=== PATIENT | female | born 1980 | race Caucasian/White ===

== ENCOUNTER 2020-01-27 22:53 | Inpatient (IN) | payer OTHER ==
[2020-01-27] MEDS ORDERED: RINGERS SOLUTION,LACTATED 1,000 ML IV PRN (23:27)
[2020-01-27] MEDS ORDERED: RINGERS SOLUTION,LACTATED 1,000 ML IV ONE (23:27)
--- NOTE | 2020-01-27 23:32 | Admission Physical ---
Datetime Report Generated by CPN: 01/27/2020 23:32 CURRENT ADMISSION Hx Assessment: The History has been Reviewed and is Current Chief Complaint: Uterine Contractions; Suspected Ruptured Membranes Chief Complaint Other: Labor Admit Impression : Term, Intrauterine ; Active Labor Admit Plan: Admit to Unit; Initiate Labor Protocol ALLERGIES Medication Allergies: Yes Medication Allergies: Sulfa (Sulfonamide Antibiotics) (01/27/2020) OBSTETRICAL HISTORY EDC: 02/03/2020 00:00 : 3 Para: 1 Term: 1 : 0 SAB: 0 IAB: 1 Ectopic: 0 Livin Cesareans: 0 VBACs: 0 Multiple Births: 0 Gestational Diabetes: Yes Obstetrical History Comments: G1-2006 4 week MAB 37 weeks 2019 Current; Polyhydramnios, GDM; large uterine fibroids MEDICAL HISTORY Diabetes: Yes Diabetes Type: Gestational Diabetes PHYSICAL EXAM General: Normal HEENT: Normal Neurologic: Normal Thyroid: Normal Heart: Normal Lungs: Normal Breast: Normal Back: Normal Abdomen: Normal Genitourinary Exam: Normal Extremities: Normal DTRs: Normal Pelvic Type: Adequate Vital Signs: Reviewed; Within Normal Limits VAGINAL EXAM Dilatation: 10 Effacement: 100 Station: 2 Contraction Comments: regular contracions FETUS A EGA: 39.0 Monitoring: External US FHR- Baseline: 145 Variability: Moderate 6-25bpm Accelerations: 15X15 Decelerations: None FHR Category: Category I Presentation: Vertex Admit Comment: at 39.0 wks EGA in active labor -Admit to LDR -NPO and IVFs. LR at 125 cc/hr after a 1 liter bolus -CEFM and toco -GBS negative -Hx of one prior -Anticipate INFORMED CONSENT Informed Consent Obtained: Vaginal Delivery; Section Delivery; Vacuum/Forceps Assist; Risks, Benefits and Alternatives Discussed Signature: with User ID: [email or web address] : with User ID: [email or web address]
[2020-01-27] MEDS ORDERED: MISOPROSTOL 0.2 MG TABLET ONE (23:33)
[2020-01-27] MEDS ORDERED: LIDOCAINE 1% INJ-PF (10 MG/ML) 30 ML SDV ONE (23:33)
[2020-01-27] MEDS ORDERED: OXYTOCIN 10 UNIT/ML VIAL ONE (23:33)
[2020-01-27] MEDS ORDERED: OXYTOCIN/0.9 % SODIUM CHLORIDE 30 UNIT/500 ML RTUINJ ONE (23:33)
[2020-01-28] MEDS ORDERED: ACETAMINOPHEN 650 MG SUPP.RECT PR PRN
[2020-01-28] MEDS ORDERED: PSEUDOEPHEDRINE HCL 30 MG TABLET PO PRN
[2020-01-28] MEDS ORDERED: BENZOCAINE/MENTHOL AEROSOL SPRAY 56 ML TOP PRN
[2020-01-28] MEDS ORDERED: DIPH/PERTUSS(ACELL)/TETANUS VAC/PF 0.5 ML SYR (>=10YO) IM PRN
[2020-01-28] MEDS ORDERED: NA PHOS,M-B/NA PHOS,DI-BA (ADULT) 133 ML ENEMA PR PRN
[2020-01-28] MEDS ORDERED: ZOLPIDEM TARTRATE 5 MG TABLET PO PRN
[2020-01-28] MEDS ORDERED: OXYTOCIN/0.9 % SODIUM CHLORIDE 30 UNIT/500 ML RTUINJ IV PRN
[2020-01-28] MEDS ORDERED: PROMETHAZINE HCL INJ 25 MG/1 ML VIAL IV PRN
[2020-01-28] MEDS ORDERED: MAGNESIUM HYDROXIDE SUSP 30 ML UDCUP PO PRN
[2020-01-28] MEDS ORDERED: DIBUCAINE 1% OINTMENT 28 GM TP PRN
[2020-01-28] MEDS ORDERED: MEASLES,MUMPS&RUBELLA VACC/PF 0.5 ML VIAL SUBCUT PRN
[2020-01-28] MEDS ORDERED: PROMETHAZINE HCL 25 MG TABLET PO PRN
[2020-01-28] MEDS ORDERED: DIPHENHYDRAMINE HCL 25 MG CAPSULE PO PRN
[2020-01-28] MEDS ORDERED: MISOPROSTOL 0.2 MG TABLET PO SCH
[2020-01-28] MEDS ORDERED: PROMETHAZINE HCL 25 MG SUPP.RECT PR PRN
[2020-01-28] MEDS ORDERED: GLYCERIN/WITCH HAZEL LEAF 1 EACH MED..WIPE TP PRN
[2020-01-28] MEDS ORDERED: ACETAMINOPHEN WITH CODEINE #3 TABLET PO PRN ×2
[2020-01-28 00:19] LABS: APPEARANCE,URINE CLEAR; BILIRUBIN,URINE NEGATIVE (NEGATIVE); COLOR,URINE YELLOW; GLUCOSE, URINE 50 mg/dL (NEGATIVE); KETONES,URINE NEGATIVE (NEGATIVE); LEUKOCYTE ESTERASE,URINE TRACE (NEGATIVE); NITRITE,URINE NEGATIVE (NEGATIVE); PROTEIN,URINE NEGATIVE (NEGATIVE); UROBILINOGEN,URINE NEGATIVE mg/dL (<2.0)
[2020-01-28] MEDS ORDERED: BENZOCAINE/MENTHOL AEROSOL SPRAY 56 ML ONE (00:25)
[2020-01-28] MEDS ORDERED: IBUPROFEN 800 MG TABLET PO ONE (00:30)
[2020-01-28] MEDS ORDERED: FAMOTIDINE 20 MG TABLET PO ONE (00:30)
[2020-01-28] MEDS: ACETAMINOPHEN 325 MG TABLET PO PRN ×2 (00:30→09:34)
[2020-01-28] MEDS ORDERED: ACETAMINOPHEN 325 MG TABLET ONE (00:33)
[2020-01-28 01:00] LABS: ABSOLUTE LYMPHOCYTES (AUTO) 0.9 10^3/uL (0.5-4.7); ABSOLUTE MONOCYTES (AUTO) 0.6 10^3/uL (0.1-1.4); ABSOLUTE NEUT (AUTO) 13.9 10^3/uL (1.7-8.2); BASOPHILS % (AUTO) 0.1 % (0-2); HEMATOCRIT 33.1 % (36.0-47.0); HEMOGLOBIN 11.5 g/dL (12.0-15.5); LYMPHOCYTES % (AUTO) 5.7 % (13-45); MEAN CORPUSCULAR HEMOGLOBIN 30.1 pg (27.0-33.4); MEAN CORPUSCULAR HGB CONC 34.7 g/dL (32.0-36.0); MEAN CORPUSCULAR VOLUME 87 fl (80-97); MONOCYTES % (AUTO) 4.1 % (3-13); PLATELET COUNT 169 10^3/uL (150-450); RED BLOOD COUNT 3.81 10^6/uL (3.72-5.28); RED CELL DISTRIBUTION WIDTH 13.8 % (11.5-14.0); SEGMENTED NEUTROPHILS % (AUTO) 90.1 % (42-78); TOTAL CELLS COUNTED % (AUTO) 100 %; WHITE BLOOD COUNT 15.5 10^3/uL (4.0-10.5)
[2020-01-28 01:00] LABS: URINE AMPHETAMINES SCREEN NEGATIVE; URINE BARBITURATES SCREEN NEGATIVE; URINE BENZODIAZEPINES SCREEN NEGATIVE; URINE COCAINE SCREEN NEGATIVE; URINE MARIJUANA (THC) SCREEN NEGATIVE; URINE METHADONE SCREEN NEGATIVE; URINE PHENCYCLIDINE SCREEN NEGATIVE
--- NOTE | 2020-01-28 02:43 | Birth Certificate Data ---
Cert Data Datetime Report Generated by CPNorma: 01/28/2020 02:42 CERTIFICATE DATA 47a. Care: Yes (01/27/2020 23:03:Gabrielle Malik RN) 47b. Date of First Visit: 07/10/2019 00:00 (01/27/2020 23:03:Gabrielle Malik RN) 47c. Date of Last Visit: 01/23/2020 00:00 (01/27/2020 23:03:Gabrielle Malik RN) 47d. Number of Visits: 13 (01/27/2020 23:03:Gabrielle Malik RN) 48a. Number of Prev Live Births: 1 (01/27/2020 23:03:Gabrielle Malik RN) 48b. Now Livin (01/27/2020 23:03:Gabrielle Malik RN) 48c. Live Births Now : 0 (01/27/2020 23:03:QS system process) 48d. Date of Last Live : 05/02/2017 00:00 (01/27/2020 23:03:Gabrielle Malik RN) 48e. Losses: 1 (01/27/2020 23:03:Gabrielle Malik RN) 48f. Date of Last Preg Loss: 04/11/2006 00:00 (01/27/2020 23:03:Gabrielle Malik RN) RISK FACTORS IN THIS 49a. Diabetes: Yes (01/27/2020 23:03:Gabrielle Malik RN) Type of Diabetes: Gestational Diabetes (01/27/2020 23:03:Gabrielle Malik RN) 49b. Hypertension: No (01/27/2020 23:03:Gabrielle Malik RN) 49c. Previous Births: 0 (01/27/2020 23:03:Gabrielle Malik RN) 49d. Stillborns: No (01/27/2020 23:03:Gabrielle Malik RN) 49d. IUGR: No (01/27/2020 23:03:Gabrielle Malik RN) 49e. Infertility Treatment: No (01/27/2020 23:03:Gabrielle Malik RN) 49f. Previous Cesareans: 0 (01/27/2020 23:03:Gabrielle Malik RN) Mother's Height 50b. Height Inches: 64 (01/27/2020 23:07:QS system process) Mother's Weight 51a. Pre- Weight (lbs): 145 (01/27/2020 23:03:Gabrielle Malik RN) 51b. Weight at Delivery (lbs): 169 (01/27/2020 23:07:QS system process) 52. Dt Last Normal Menses Began: 04/29/2019 00:00 (01/27/2020 23:03:Gabrielle Malik RN) Infections Present/Treated 53a. Gonorrhea: No (01/27/2020 23:03:Gabrielle Malik RN) Results this Hospital Visit : Negative (01/27/2020 23:03:Gabrielle Malik RN) 53b. Syphilis: No (01/27/2020 23:03:Gabrielle Malik RN) 53c. Chlamydia: No (01/27/2020 23:03:Gabrielle Malik RN) Results this Hospital Visit: Negative (01/27/2020 23:03:Gabrielle Malik RN) 53d. Hepatitis B: No (01/27/2020 23:03:Gabrielle Malik RN) Results this Hospital Visit: Negative (01/27/2020 23:03:Gabrielle Malik RN) 53h. Mother Tested for HBsAG: Yes (01/27/2020 23:03:Gabrielle Malik RN) 53i. Date Tested: 07/10/2019 00:00 (01/27/2020 23:03:Gabrielle Malik RN) 53j. Test Result: Negative (01/27/2020 23:03:Gabrielle Malik RN) Obstetric Procedures 54a, b, c. Obstetric Procedures: Ultrasound (01/27/2020 23:03:Gabrielle Malik RN) Cigarette Smoking Cigarette Smoking: Never Smoker. [id number] (01/27/2020 23:03:Gabrielle Malik RN) Onset of Labor 56a. PROM >12 Hrs: 1.37 (01/27/2020 23:03:QS system process) 56b. Precipitous Labor <3 Hrs: 4 (01/27/2020 23:03:QS system process) 56c. Prolonged Labor > 20 Hrs: 4 (01/27/2020 23:03:QS system process) 57a. Induction of Labor: N/A (01/27/2020 23:03:ZAHIDA Patel) 57c. Non-Vertex Presentation A: Vertex (01/27/2020 23:03:ZAHIDA Patel) 57d. Steroids - Lung Mat: None (01/27/2020 23:03:ZAHIDA Patel) 57d. Steroids - Lung Mat: Not Applicable (01/27/2020 23:03:ZAHIDA Patel) 57f. Mat [place] or Temp >100.4: 98.4 (01/27/2020 23:03:Gabrielle Malik RN) 57g. Moderate/Heavy Meconium: Clear (01/27/2020 23:03:ZAHIDA Patel) 57h. Intolerance of Labor: N/A (01/27/2020 23:03:ZAHIDA Patel) : N/A (01/27/2020 23:03:Gabrielle Malik RN) 57i. Epidural/Spinal Anesthesia: None (01/27/2020 23:03:ZAHIDA Patel) Method of Delivery 58a. Forceps - Unsuccessful A: N/A (01/27/2020 23:03:ZAHIDA Patel) 58b. Vacuum - Unsuccessful A: N/A (01/27/2020 23:03:ZAHIDA Patel) 58c. Presentation at 58c. Presentation at - A : Vertex (01/27/2020 23:03:ZAHIDA Patel) 58c. Presentation at - A : N/A (01/27/2020 23:03:Pallavi Bellavance, RNC) 58c. Presentation at - A : Cephalic (01/27/2020 23:03:Pallavi Bellavance, RNC) Final Route and Method of Del 58d. Baby A Route/Delivery: Vaginal (01/27/2020 23:39:Gabrielle Malik RN) 58e. Trial of Labor Attempted: No (01/27/2020 23:03:Pallavi Bellavance, RNC) 58e. Trial of Labor Attempted A: N/A (01/27/2020 23:03:Pallavi Bellavance, RNC) 58e. Trial of Labor Attempted B: N/A (01/27/2020 23:03:Pallavi Bellavance, RNC) Maternal Morbidity 59b. 3rd or 4th Degree Lacs: Perineal (01/27/2020 23:03:Estephania Dumont, MD) Birthweight Baby A: 3438 (01/27/2020 23:03:Gabrielle Malik ) 60a. Pounds : 7 (01/27/2020 23:03:QS system process) 60b. Ounces: 9 (01/27/2020 23:03:QS system process) 61. GA at Delivery Baby A: 39.0 (01/27/2020 23:03:[facility]) : Full Term- 39- 40.6 Weeks (01/27/2020 23:03:QS system process) 62a. 5 Minute Baby A: 9 (01/27/2020 23:03:QS system process)
--- NOTE | 2020-01-28 02:43 | Delivery Summary ---
Del Sum A-C Datetime Report Generated by CPN: 01/28/2020 02:42 DELIVERY PERSONNEL DELIVERY PERSONNEL: [id number] Delivery Doctor:: Estephania Dumont MD Labor and Delivery Nurse:: Gabrielle Malik RN Labor and Delivery Nurse:: Pallavi Jaimes RNC Nursery Nurse:: Lori Hernandez RN Head Of Music/BULKER: Lindsey Green, ST MATERNAL INFORMATION Delivery Anesthesia: None Medications After Delivery: Pitocin 30 Units in 500ml NS/D5W Delivery QBL: 200 Maternal Complications: None Provider Comments: Called to patients room as she was complete and +3. Pateint had desire to push Pushed through two contractions and delivered viable male . After the head delivered, a nuchal cord x2 noted and reduced. SHoulders and rest of the body delivered easily. Cord clamping delayed for 30 seconds as was vigorous. placed chest to chest with Mother after cord doubly clamped and cut. Both stable. Fundus firm LABOR SUMMARY EDC: 02/03/2020 00:00 No. Babies in Womb: 1 Attempted: No Labor Anesthesia: None LABOR INFORMATION Reason for Induction: Not Applicable Onset of Labor: 01/27/2020 19:00 Complete Dilatation: 01/27/2020 23:24 Oxytocin: N/A Group B Beta Strep: negative Antibiotics # of Doses: 0 Name of Antibiotic Given: n/a Steroids Given: None Reason Steroids Not Administered: Not Applicable MEMBRANES Membranes Rupture Method: Spontaneous Rupture of Membranes: 01/27/2020 22:17 Length of Rupture (hr): 1.37 Amniotic Fluid Color: Clear Amniotic Fluid Amount: Small Amniotic Fluid Odor: None STAGES OF LABOR Stage 1 hr: 4 Stage 1 min: 24 Stage 2 hr: 0 Stage 2 min: 15 Stage 3 hr: 0 Stage 3 min: 5 Total Time in Labor hr: 4 Total Time in Labor min: 44 VAGINAL DELIVERY Episiotomy: None Laceration #1: Perineal Laceration Extension #1: Second Degree Laceration Repair: Yes Laceration Repair Note: Repaired with 2-0 chromic in a layered closure Sponge Count Correct: Yes Sharps Count Correct: Yes CSECTION DELIVERY Primary Indication: N/A Secondary Indication: N/A CSection Urgency: N/A CSection Incidence: N/A Labor: N/A Elective: N/A CSection Incision: N/A BABY A INFORMATION Delivery Date/Time: 01/27/2020 23:39 Method of Delivery: Vaginal Nurse Controlled Delivery: No Born in Route : No : N/A Forceps: N/A Vacuum Extraction: N/A Shoulder Dystocia : No PRESENTATION/POSITION BABY A Presentation: Cephalic Cephalic Presentation: Vertex Vertex Position: Left Occipital Anterior Breech Presentation: N/A PLACENTA INFORMATION BABY A Placenta Delivery Time : 01/27/2020 23:44 Placenta Method of Delivery: Spontaneous Placenta Status: Delivered SCORES BABY A Heart Rate 1 min: >100 bpm Resp Effort 1 min: Good Cry Reflex Irritability 1 min: Cough or Sneeze or Pulls Away Muscle Tone 1 min: Some Flexion of Extremities Color 1 min: Blue/Pale Resuscitation Effort 1 min: Tactile Stimulation SCORE 1 MIN: 7 Heart Rate 5 min: >100 bpm Resp Effort 5 min: Good Cry Reflex Irritability 5 min: Cough or Sneeze or Pulls Away Muscle Tone 5 min: Active Motion Color 5 min: Body Earling, Extremities Blue Resuscitation Effort 5 min: Tactile Stimulation SCORE 5 MIN: 9 INFORMATION BABY A Gestational Age at Delivery: 39.0 Gestational Status: Full Term- 39- 40.6 Weeks Outcome : Liveborn Condition : Stable Infant Sex: Male IDENTIFICATION BABY A Verification Date/Time: 01/27/2020 23:46 ID Band Number: [id number] Mother's Name Verified: Yes RN Verifying : C. Gentilin, RN K. Mario, RN WEIGHT/LENGTH BABY A Birthweight (gm): 3438 Weight (lb): 7 Infant Weight (oz): 9 Length (in): 19.50 Length (cm): 49.53 CORD INFORMATION BABY A No. Cord Vessels: 3 Nuchal Cord : Around Neck x2, Loose Cord Blood Taken: Yes-For Eval (Mom's Blood Type - or O+) Suction: Mouth ASSESSMENT BABY A Infant Complications: None Physical Findings at Delivery: Other Physical Findings- Other: see nursery nurse assessment Respirations: Appears Normal Skin to Skin: Yes Skin to Skin Time (min): 60 Landing Worker/ALS Called : No Infant Care By: Oj Hernandez RN Transferred To: Remains with Mother BABY B INFORMATION : N/A SIGNATURES Signature: with User ID: [email or web address] : with User ID: Dede
[2020-01-28] MEDS ORDERED: IBUPROFEN 800 MG TABLET ONE (04:53)
[2020-01-28] MEDS: IBUPROFEN 800 MG TABLET PO SCH ×3 (05:00→22:36)
[2020-01-28] MEDS: DOCUSATE SODIUM 100 MG CAPSULE PO SCH ×2 (09:34→17:16)
[2020-01-28] MEDS: PRENATAL VITAMIN W DHA CAPSULE PO SCH (09:34)
[2020-01-28] MEDS: FERROUS SULFATE 325 MG TABLET PO SCH ×2 (09:35→21:35)
[2020-01-28] MEDS: SENNOSIDES/DOCUSATE 8.6-50 MG 1 EACH TABLET PO SCH (09:35)
--- NOTE | 2020-01-28 11:39 | PDOC PROGRESS REPORT ---
Subjective-OB Progress Note for:: 01/28/20 Subjective: reports bleeding slowing, pain controlled with current meds. denies needs Physical Exam (OB) Vital Signs: Temp Pulse Resp BP Pulse Ox 97.9 F 103 H 16 114/72 99 01/28/20 07:17 01/28/20 07:17 01/28/20 07:17 01/28/20 07:17 01/28/20 07:17 Intake & Output 01/27/20 01/28/20 01/29/20 06:59 06:59 06:59 Intake Total 1240 300 Output Total 900 Balance 340 300 Weight 76.9 kg - Maternal Morbidity 59. Maternal Morbidity (serious complications experinced by the mother associated with labor and delivery: None of the above - Abdomen Description: Soft Fundal Description: Firm, Midline Fundal Height: u/u - u/2 - Abdominal Distension: No distension Tenderness: Nontender - Extremities Lower extremities: Justin's sign - neg Calf: Normal, Nontender Objective-Diagnostic Laboratory: 01/28/20 00:42 01/27/20 01/28/20 01/28/20 23:10 00:42 00:42 WBC 15.5 H RBC 3.81 Hgb 11.5 L Hct 33.1 L MCV 87 MCH 30.1 MCHC 34.7 RDW 13.8 Plt Count 169 Seg Neutrophils % 90.1 H Urine Color YELLOW Urine Appearance CLEAR Urine pH 6.0 Ur Specific [place] 1.010 Urine Protein NEGATIVE Urine Glucose (UA) 50 H Urine Ketones NEGATIVE Urine Blood MODERATE H Urine Nitrite NEGATIVE Ur Leukocyte Esterase TRACE H Blood Type A NEGATIVE Antibody Screen POSITIVE Assessment and Plan(PN) - Time Spent with Patient Time with patient: Less than 15 minutes Medications reviewed and adjusted accordingly: Yes - Disposition Anticipated Discharge Disposition: Home, Self Care Anticipated Discharge Timeframe: within 24 hours
[2020-01-28] MEDS: FAMOTIDINE 20 MG TABLET PO SCH ×2 (14:21→21:37)
[2020-01-29] MEDS: IBUPROFEN 800 MG TABLET PO SCH (05:48)
[2020-01-29 08:05] LABS: HEMATOCRIT 28.7 % (36.0-47.0); HEMOGLOBIN 10.2 g/dL (12.0-15.5); MEAN CORPUSCULAR HEMOGLOBIN 30.8 pg (27.0-33.4); MEAN CORPUSCULAR HGB CONC 35.4 g/dL (32.0-36.0); MEAN CORPUSCULAR VOLUME 87 fl (80-97); PLATELET COUNT 159 10^3/uL (150-450); RED CELL DISTRIBUTION WIDTH 13.6 % (11.5-14.0); WHITE BLOOD COUNT 10.7 10^3/uL (4.0-10.5)
[2020-01-29 08:09] VITALS: BP 116/59
--- NOTE | 2020-01-29 09:02 | PDOC PROGRESS REPORT ---
Subjective-OB Progress Note for:: 01/29/20 Subjective: Doing well, no c/o, ready to go home, voiding, eating well, Physical Exam (OB) Vital Signs: Temp Pulse Resp BP Pulse Ox 98.3 F 74 16 116/59 L 100 01/29/20 07:41 01/29/20 07:41 01/29/20 07:41 01/29/20 07:41 01/29/20 07:41 Intake & Output 01/28/20 01/29/20 01/30/20 06:59 06:59 06:59 Intake Total 1240 1080 Output Total 900 Balance 340 1080 Weight 76.9 kg - PIH/Pre-Eclampsia DTR's: 1 + Clonus: Negative Headache: Absent Epigastric Pain: No Visual Changes: No - Maternal Morbidity 59. Maternal Morbidity (serious complications experinced by the mother associated with labor and delivery: None of the above - Lochia Lochia Amount: Scant < 10 ml Lochia Color: Rubra/Red - Abdomen Description: Soft Hernia Present: No Fundal Description: Firm, Midline Fundal Height: u/u - u/2 Objective-Diagnostic Laboratory: 01/29/20 07:56 01/29/20 07:56 WBC 10.7 H RBC 3.30 L Hgb 10.2 L Hct 28.7 L MCV 87 MCH 30.8 MCHC 35.4 RDW 13.6 Plt Count 159 Assessment and Plan(PN) - Assessment and Plan (1) Fibroid, uterine Qualifiers: Uterine leiomyoma location: unspecified location Qualified Code(s): D25.9 - Leiomyoma of uterus, unspecified Is this a current diagnosis for this admission?: Yes (2) Gestational diabetes Qualifiers: Gestational diabetes mellitus control: diet-controlled Is this a current diagnosis for this admission?: Yes (3) Rh negative status during Qualifiers: Trimester: first trimester Qualified Code(s): O26.891 - Other specified related conditions, first trimester; Z67.91 - Unspecified blood type, Rh negative Is this a current diagnosis for this admission?: Yes (4) Delivery normal Is this a current diagnosis for this admission?: Yes - Time Spent with Patient Time with patient: Less than 15 minutes Medications reviewed and adjusted accordingly: Yes - Disposition Anticipated Discharge Disposition: Home, Self Care Anticipated Discharge Timeframe: within 24 hours
--- NOTE | 2020-01-29 09:08 | PDOC DISCHARGE SUMMARY ---
Impression - Admit/DC Date/PCP Admission Date/Primary Care Provider: 01/27/20 23:34 Discharge Date: 01/29/20 - Discharge Diagnosis (1) Fibroid, uterine Is this a current diagnosis for this admission?: Yes (2) Gestational diabetes Is this a current diagnosis for this admission?: Yes (3) Rh negative status during Is this a current diagnosis for this admission?: Yes (4) Delivery normal Is this a current diagnosis for this admission?: Yes - Additional Information Resuscitation Status: Full Code Discharge Diet: As Tolerated, Regular Discharge Activity: Activity As Tolerated, Pelvic Rest Referrals: RAMIRO WASHINGTON MD [ACTIVE STAFF] - (rtc 4 weeks) Home Medications: [id number]/Iron Fum/Folic/Docusate [ 19 Tablet] 1 tab PO DAILY 01/27/20 HPI Gestational Age: 39 Reason(s) for Admission: Onset of Labor, PROM Procedures: NST, Ultrasound, Management of Obstetric Complications Procedure(s) Note: GDM, poly Intrapartum Procedure(s): Spontaneous Vaginal Delivery Complication(s): Laceration-Perineal Laceration-Degree: 2nd Hospital Course Hospital Course: routine 59. Maternal Morbidity (serious complications experinced by the mother associated with labor and delivery: None of the above Results Laboratory Results: WBC 10.7 10^3/uL (4.0-10.5) H 01/29/20 07:56 RBC 3.30 10^6/uL (3.72-5.28) L 01/29/20 07:56 Hgb 10.2 g/dL (12.0-15.5) L 01/29/20 07:56 Hct 28.7 % (36.0-47.0) L 01/29/20 07:56 MCV 87 fl (80-97) 01/29/20 07:56 MCH 30.8 pg (27.0-33.4) 01/29/20 07:56 MCHC 35.4 g/dL (32.0-36.0) 01/29/20 07:56 RDW 13.6 % (11.5-14.0) 01/29/20 07:56 Plt Count 159 10^3/uL (150-450) 01/29/20 07:56 Lymph % (Auto) 5.7 % (13-45) L 01/28/20 00:42 [place] % (Auto) 4.1 % (3-13) 01/28/20 00:42 Eos % (Auto) 0.0 % (0-6) 01/28/20 00:42 Baso % (Auto) 0.1 % (0-2) 01/28/20 00:42 Absolute Neuts (auto) 13.9 10^3/uL (1.7-8.2) H 01/28/20 00:42 Absolute Lymphs (auto) 0.9 10^3/uL (0.5-4.7) 01/28/20 00:42 Absolute Monos (auto) 0.6 10^3/uL (0.1-1.4) 01/28/20 00:42 Absolute Eos (auto) 0.0 10^3/uL (0.0-0.6) 01/28/20 00:42 Absolute Basos (auto) 0.0 10^3/uL (0.0-0.2) 01/28/20 00:42 Seg Neutrophils % 90.1 % (42-78) H 01/28/20 00:42 Urine Color YELLOW 01/27/20 23:10 Urine Appearance CLEAR 01/27/20 23:10 Urine pH 6.0 (5.0-9.0) 01/27/20 23:10 Ur Specific [place] 1.010 01/27/20 23:10 Urine Protein NEGATIVE mg/dL (NEGATIVE) 01/27/20 23:10 Urine Glucose (UA) 50 mg/dL (NEGATIVE) H 01/27/20 23:10 Urine Ketones NEGATIVE mg/dL (NEGATIVE) 01/27/20 23:10 Urine Blood MODERATE (NEGATIVE) H 01/27/20 23:10 Urine Nitrite NEGATIVE (NEGATIVE) 01/27/20 23:10 Urine Bilirubin NEGATIVE (NEGATIVE) 01/27/20 23:10 Urine Urobilinogen NEGATIVE mg/dL (<2.0) 01/27/20 23:10 Ur Leukocyte Esterase TRACE (NEGATIVE) H 01/27/20 23:10 Urine Ascorbic Acid NEGATIVE (NEGATIVE) 01/27/20 23:10 Membranes Rupture POSITIVE (NEGATIVE) H 01/27/20 23:20 Urine Opiates Screen NEGATIVE 01/27/20 23:10 Urine Methadone Screen NEGATIVE 01/27/20 23:10 Ur Barbiturates Screen NEGATIVE 01/27/20 23:10 Ur Phencyclidine Scrn NEGATIVE 01/27/20 23:10 Ur Amphetamines Screen NEGATIVE 01/27/20 23:10 U Benzodiazepines Scrn NEGATIVE 01/27/20 23:10 Urine Cocaine Screen NEGATIVE 01/27/20 23:10 U Marijuana (THC) Screen NEGATIVE 01/27/20 23:10 RPR NONREACTIVE (NONREACTIVE) 01/28/20 00:42 Blood Type A NEGATIVE 01/28/20 00:42 Antibody Screen POSITIVE 01/28/20 00:42 Antibody Identification RHOGAM INDUCED ANTI-D 01/28/20 00:42 Plan Health Concerns: check BS 2-3 x week, GDM Plan of Treatment: dicharge home, rev S&S to report Goals: no complications Time Spent: Less than 30 Minutes - RTC 4 weeks
[2020-01-29] MEDS: PRENATAL VITAMIN W DHA CAPSULE PO SCH (09:10)
[2020-01-29] MEDS: DOCUSATE SODIUM 100 MG CAPSULE PO SCH (09:10)
[2020-01-29] MEDS: SENNOSIDES/DOCUSATE 8.6-50 MG 1 EACH TABLET PO SCH (09:10)
[2020-01-29] MEDS: FAMOTIDINE 20 MG TABLET PO SCH (09:26)
[2020-01-29] MEDS: FERROUS SULFATE 325 MG TABLET PO SCH (09:26)
== END 2020-01-29 12:16 | disposition home or self-care (01) | DRG 807 ==
LOC: LC 22:53 → LR 23:34 → 2S 01-28 02:46
PROVIDERS: ADMIT Obstetrics & Gynecology; ATTEND Obstetrics & Gynecology
PROC: 10E0XZZ Delivery of Products of Conception, External Approach (ICD-10-PCS; principal; 2020-01-27)
PROC: 0KQM0ZZ Repair Perineum Muscle, Open Approach (ICD-10-PCS; 2020-01-27)
DX: O40.3XX0 Polyhydramnios, third trimester, not applicable or unspecified (principal); Z37.0 Single live birth; O24.420 Gestational diabetes mellitus in childbirth, diet controlled; O34.13 Maternal care for benign tumor of corpus uteri, third trimester; D25.9 Leiomyoma of uterus, unspecified; O69.81X0 Labor and delivery complicated by cord around neck, without compression, not applicable or unspecified; O70.1 Second degree perineal laceration during delivery; Z3A.39 39 weeks gestation of pregnancy; Z67.91 Unspecified blood type, Rh negative
CPT/HCPCS: 36415; 80307; 81005; 84112; 85025; 85027; 86592; 86850; 86870; 86900; 86901; J2590; J3490